=== PATIENT | female | born 1990 | race Caucasian/White ===

== ENCOUNTER 2017-07-19 20:06 | Observation (INO) | payer MEDICAID ==
[~2017-07-19] VITALS: Ht 157.5 cm; Wt 54.4 kg
[2017-07-19] MEDS ORDERED: cefTRIAXone 1 GM IVPB PREMIX 50 ML IV ONE ×2 (21:15→21:22)
== END 2017-07-19 22:25 | disposition home or self-care (01) ==
LOC: SPU 20:06
PROVIDERS: ADMIT Obstetrics & Gynecology; ATTEND Obstetrics & Gynecology
DX: O42.913 Preterm premature rupture of membranes, unspecified as to length of time between rupture and onset of labor, third trimester (principal); O99.613 Diseases of the digestive system complicating pregnancy, third trimester; K46.9 Unspecified abdominal hernia without obstruction or gangrene; O99.89 Other specified diseases and conditions complicating pregnancy, childbirth and the puerperium; H92.09 Otalgia, unspecified ear; O99.343 Other mental disorders complicating pregnancy, third trimester; F41.9 Anxiety disorder, unspecified; Z3A.30 30 weeks gestation of pregnancy
CPT/HCPCS: 81002; 96365; G0378; J0696